=== PATIENT | male | born 1980 | race Caucasian/White ===

== ENCOUNTER 2018-01-17 12:14 | Emergency (ER) | payer BC ==
[~2018-01-17] VITALS: Ht 188 cm; Wt 136.3 kg
[~2018-01-17 12:14] MED LIST: TOPROL XL50 MG PO
[2018-01-17 13:04] LABS: HEMATOCRIT 47.7 % (38.0-50.0); HEMOGLOBIN 16.2 G/DL (12.5-16.6); MCH 29.8 PG (29.0-34.0); MCV 87.7 FL (86-99); PLATELET COUNT 247 K/uL (156-360); RBC DIS.WIDTH-SD 41.5 % (39-53); RED BLOOD COUNT 5.44 M/uL (4.00-5.50); WHITE BLOOD COUNT 11.3 K/uL (4.1-10.2)
[2018-01-17 13:12] LABS: CHLORIDE 107 mEq/L (99-109); POTASSIUM 4.1 mEq/L (3.7-5.4); SODIUM 140 mEq/L (136-147)
[2018-01-17 13:14] LABS: GLUCOSE 90 mg/dL (70-99)
[2018-01-17 13:18] LABS: CREATININE 0.9 mg/dL (0.6-1.3); GFR ESTIMATE (CALCULATED) > 59 mL/min/ (58.99-99999); UREA NITROGEN (BUN) 13 mg/dL (9-23)
[2018-01-17 15:11] VITALS: BP 151/105
== END 2018-01-17 15:16 | disposition home or self-care (01) ==
LOC: EME 12:14 → EXP 12:14
DX: R42 Dizziness and giddiness (principal); I10 Essential (primary) hypertension; R06.02 Shortness of breath; F17.200 Nicotine dependence, unspecified, uncomplicated; Z90.49 Acquired absence of other specified parts of digestive tract
CPT/HCPCS: 71046; 80048; 85027; 93005; 99281; 99284